=== PATIENT | male | born 1980 | race Caucasian/White ===

== ENCOUNTER 2021-12-18 18:43 | Emergency (ER) | payer SELFPAY ==
[2021-12-18 21:23] LABS: BILIRUBIN NEGATIVE (NEGATIVE); BLOOD NEGATIVE Ery/uL (NEGATIVE); CLARITY CLEAR (CLEAR); COLOR YELLOW (YELLOW); GLUCOSE (U) 3+ mg/dL (NORMAL); LEUKOCYTES NEGATIVE Leu/uL (NEGATIVE); NITRITE NEGATIVE (NEGATIVE); PROTEIN NEGATIVE (NEGATIVE); UROBILINOGEN 0.2 mg/dL (0.2-1.0)
[2021-12-18 21:23] LABS: BASOPHIL 0.6 % (0-2); EOSINOPHIL 2.7 % (0-5); HCT 46.9 % (42.0-52.0); HGB 16.3 g/dl (13.2-18.0); LYMPHOCYTE 31.3 % (15-48); MCH 30.5 pg (25.0-31.0); MCHC 34.8 g/dL (32.0-36.0); MCV 87.8 fL (78.0-100.0); MONOCYTE 7.8 % (0-12); NEUTROPHIL 57.3 % (41-80); NRBC 0; PLT 274 K/uL (150-400); RBC 5.34 M/uL (4.70-6.00); RDW 12.2 % (11.5-14.0); WBC 6.4 K/uL (4.0-10.5)
[2021-12-18 21:39] LABS: BUN/CREAT RATIO (CALC) 16.9 RATIO; CREATININE 0.89 mg/dL (0.67-1.17); POTASSIUM 3.7 mmol/L (3.5-5.1)
[2021-12-18] MEDS ORDERED: CYCLOBENZAPRINE10 MG PO (22:03)
== END 2021-12-18 22:27 | disposition home or self-care (01) ==
LOC: FER 18:43
PROVIDERS: Nurse Practitioner Family
DX: S29.012A Strain of muscle and tendon of back wall of thorax, initial encounter (principal); E11.9 Type 2 diabetes mellitus without complications; Z28.310 Unvaccinated for COVID-19
CPT/HCPCS: 36415; 80048; 81003; 85025; J7030